=== PATIENT | female | born 1980 | race Caucasian/White ===

== ENCOUNTER 2018-09-04 08:26 | Day surgery (SDC) | payer OTHER ==
[~2018-09-04 08:26] MED LIST: SEVOFLURANE 15 MIN
[2018-09-04] MEDS: LACTATED RINGER'S 1,000 ML IV (10:48)
[2018-09-04 10:49] LABS: ADD MAN DIFF? NO; BASOPHILS % 0.6 % (0.0-2.0); EOSINOPHILS % 0.6 % (0.0-7.0); HEMATOCRIT 37.9 % (37.0-47.0); LYMPHOCYTES # 1.5 10^3/ul (0.8-2.9); LYMPHOCYTES % 32.6 % (15.0-51.0); MEAN CORPUSCULAR HEMOGLOBIN 27.3 pg (29.0-33.0); MEAN CORPUSCULAR HGB CONC 31.7 g/dl (32.0-37.0); MEAN CORPUSCULAR VOLUME 86.3 fl (82.0-101.0); MEAN PLATELET VOLUME 10.5 fl (7.4-10.4); MONOCYTE # 0.3 10^3/ul (0.3-0.9); MONOCYTES % 6.6 % (0.0-11.0); NEUTROPHIL # 2.8 10^3/ul (1.6-7.5); NEUTROPHILS % 59.4 % (39.0-77.0); PLATELET COUNT 188 10^3/UL (140-415); RED BLOOD COUNT 4.39 10^6/ul (4.20-5.40); RED CELL DISTRIBUTION WIDTH 13.9 % (11.5-14.5)
[2018-09-04 10:49] LABS: WHITE BLOOD COUNT 4.7 10^3/ul (4.8-10.8)
[2018-09-04] MEDS ORDERED: MIDAZOLAM 1 MG/ML 2 ML INJ (11:24)
[2018-09-04] MEDS ORDERED: CEFAZOLIN 1 GM INJ (11:31)
[2018-09-04] MEDS ORDERED: DEXAMETHASONE 4 MG/ML 5 ML INJ (11:31)
[2018-09-04] MEDS ORDERED: EPHEDrine 25 MG/5 ML SYG (11:31)
[2018-09-04] MEDS ORDERED: PROPOFOL 20 ML (11:31)
[2018-09-04] MEDS ORDERED: ONDANSETRON 4 MG INJ (11:31)
[2018-09-04] MEDS ORDERED: LIDOCAINE 2% (SDV) 5 ML INJ (11:31)
[2018-09-04] MEDS ORDERED: FAMOTIDINE 20 MG INJ (11:32)
[2018-09-04] MEDS ORDERED: FENTAnyl 50 MCG/ML VIAL (11:35)
[2018-09-04] MEDS ORDERED: HYDROmorphONE 1 MG/5 ML IV SYRINGE IV (12:00)
[2018-09-04] MEDS ORDERED: FENTAnyl 50 MCG/ML VIAL IV (12:00)
[2018-09-04] MEDS ORDERED: EPHEDrine 25 MG/5 ML SYG IV (12:00)
[2018-09-04] MEDS ORDERED: PROCHLORPERAZINE 10 MG INJ IV (12:00)
[2018-09-04] MEDS: HYDROmorphONE 1 MG/5 ML IV SYRINGE IV ×3 (12:05→12:57)
[2018-09-04] MEDS: MEPERIDINE 25 MG INJ IV (12:05)
[2018-09-04] MEDS: ONDANSETRON 4 MG INJ IV (12:05)
[2018-09-04] MEDS: HYDROCODONE/APAP (5/325) TAB PO (12:39)
[2018-09-04] MEDS: DIPHENHYDRAMINE 50 MG INJ IV (12:39)
== END 2018-09-04 13:40 | disposition home or self-care (01) ==
LOC: SDS 08:26
DX: O02.1 Missed abortion (principal)
CPT/HCPCS: 59820; 76801; 85025; 86850; 86900; 86901; 88305